=== PATIENT | female | born 1955 | race Hispanic/Latino ===

== ENCOUNTER 2020-12-14 17:52 | Emergency (ER) | payer OTHER ==
[2020-12-14 17:56] VITALS: BP 125/60
[2020-12-14] MEDS ORDERED: PROMETHAZINE HCL 25 MG/ML 1ML AMPULE IM SCH (18:30)
[2020-12-14] MEDS ORDERED: SODIUM CHLORIDE 0.9% 1000ML 1,000 ML IV SCH (18:30)
[2020-12-14] MEDS ORDERED: CYCLOBENZAPRINE HCL 10 MG TABLET PO ONE (18:30)
[2020-12-14] MEDS ORDERED: KETOROLAC 30MG VIAL (30MG/ML) IV ONE (18:30)
[2020-12-14 19:54] LABS: BASOPHILS % (AUTO) 0.7 % (0.0-5.0); EOSINOPHILS % (AUTO) 0.4 % (0.0-8.0); HEMATOCRIT 41.5 % (36-48); MEAN CORPUSCULAR HEMOGLOBIN 30.3 pg (27.0-33.0); MEAN CORPUSCULAR HGB CONC 33.5 g/dL (32.0-36.0); MEAN CORPUSCULAR VOLUME 90.6 fL (79-99); NEUTROPHILS % (AUTO) 77.5 % (40.0-77.0); PLATELET COUNT (AUTO) 190 K/uL (130-400); RED BLOOD CELL COUNT(AUTO) 4.58 MIL/uL (4.00-5.50); RED CELL DISTRIBUTION WIDTH 13.9 % (11.0-15.5); WHITE BLOOD COUNT (AUTO) 5.5 K/uL (4.8-10.8)
[2020-12-14 20:09] LABS: CREATININE 0.8 mg/dL (0.5-1.5); POTASSIUM 4.2 mmol/L (3.5-5.1)
[2020-12-14 20:10] VITALS: BP 142/68
[2020-12-14 20:14] LABS: ALBUMIN 3.3 g/dL (3.5-5.0); BILIRUBIN,TOTAL 0.4 mg/dL (0.2-1.0); TOTAL PROTEIN, SERUM 7.7 g/dL (6.0-8.3)
[2020-12-14] MEDS ORDERED: CYCLOBENZAPRINE HCL 10 MG TABLET ONE (20:33)
[2020-12-14] MEDS ORDERED: KETOROLAC 30MG VIAL (30MG/ML) ONE (20:33)
[2020-12-14] MEDS ORDERED: CYCL10 PO (21:21)
[2020-12-14] MEDS ORDERED: NAPR-1180 PO (21:21)
== END 2020-12-14 21:47 | disposition home or self-care (01) ==
LOC: EDH 17:52
DX: G44.209 Tension-type headache, unspecified, not intractable (principal); R94.5 Abnormal results of liver function studies; R11.2 Nausea with vomiting, unspecified; R53.1 Weakness; K21.9 Gastro-esophageal reflux disease without esophagitis
CPT/HCPCS: 36415; 70450; 80053; 85025; 96361; 96372; 96374; 99285; J1885; J2550; J7030